=== PATIENT | female | born 1955 | race Caucasian/White ===

== ENCOUNTER 2017-06-14 14:40 | Emergency (ER) | payer OTHER ==
[~2017-06-14] VITALS: Ht 162.6 cm; Wt 60.3 kg
[~2017-06-14 14:40] MED LIST: ALDACTONE25 MG PO; ALDACTONE50 MG PO; ALLEGRA ALLERG180 MG PO; CALCIUM 600 +1 EAC1 PO; CINNAMON500 MG PO; CLEOCIN HCL300 MG PO; DIVIGEL0.25 MG PO; FISH OIL 1,001000 M2 PO; HYDROCHLOROTHIA25 M2 PO; INTERMEZZO1.75 MG SL; INVOKANA100 MG PO; JARDIANCE10 MG PO; LEXAPRO 10 MG T10 M1 PO; LEXAPRO20 MG PO; LIPITOR10 MG PO; METFORMIN HCL500 MG PO; PERCOCET 5-3251 EACH PO; TRETINOIN10 MG PO; TRIAMTERENE-HC1 EAC1 PO; TRULICITY1.5 MG/0.5; VITAMIN D2000 UNIT PO; VOLTAREN GEL 1100 G2 TOP; ZEGERID OTC 201 EACH PO; ZOLPIDEM TARTRA10 MG PO; [UNRECOGNIZED DRUG - REMARK] PO
[2017-06-14] MEDS ORDERED: AMOXICILLIN 50500 MG PO (14:52)
[2017-06-14] MEDS ORDERED: TESSALON PERLE100 MG PO ×2 (14:52→16:29)
[2017-06-14] MEDS ORDERED: TAMIFLU45 MG PO (14:52)
[2017-06-14 15:36] LABS: ABSOLUTE LYMPHOCYTES 2.1 thou/uL (0.8-5.3); ABSOLUTE MONOCYTES 0.4 thou/uL (0.0-1.2); ABSOLUTE NEUTROPHILS 2.5 thou/uL (1.6-8.1); BASOPHILS 0.5 %; EOSINOPHILS 0.7 %; HEMOGLOBIN 15.3 gm/dL (12.0-15.0); LYMPHOCYTES 41.9 %; MCH 29.3 pg (26.0-34.0); MCHC 33.3 g/dL (28.0-37.0); MONOCYTES 8.1 %; MPV 8.2 fl. (7.2-11.1); NUCLEATED RBCS 0 /100WBC; PLATELET COUNT* 306 thou/uL (150-400); POLYS 48.8 %; RBC 5.23 mil/uL (4.20-5.00); RDW-CV 13.4 % (10.5-14.5); WBC 5.1 thou/uL (4.0-11.0)
[2017-06-14 15:44] LABS: CALCIUM 10.2 mg/dL (8.5-10.1); CREATININE 0.7 mg/dL (0.6-1.3); POTASSIUM 3.3 mmol/L (3.5-5.1)
[2017-06-14 15:54] LABS: ALBUMIN 4.2 g/dL (3.4-5.0); TOTAL BILIRUBIN 0.7 mg/dL (<0.1-1.0); TOTAL PROTEIN 7.7 g/dL (6.4-8.2)
[2017-06-14] MEDS ORDERED: ACETAMINOPHEN-1 EAC1 PO (16:28)
[2017-06-14] MEDS ORDERED: PROMETHAZINE V473 ML PO (16:29)
[2017-06-14] MEDS ORDERED: PROAIR HFA8.5 GM INH (16:29)
[2017-06-14] MEDS ORDERED: MEDROLDOSEPACK PO (16:29)
[2017-06-14 16:49] VITALS: BP 128/58
== END 2017-06-14 16:50 | disposition home or self-care (01) ==
LOC: M.ERS 14:40
PROVIDERS: Physician Assistant
DX: J11.1 Influenza due to unidentified influenza virus with other respiratory manifestations (principal); E11.9 Type 2 diabetes mellitus without complications; E78.00 Pure hypercholesterolemia, unspecified; F32.9 Major depressive disorder, single episode, unspecified; K21.9 Gastro-esophageal reflux disease without esophagitis; Z98.890 Other specified postprocedural states

== ENCOUNTER → 2017-06-27 | Outpatient (CLI) | payer OTHER ==
[~2017-06-27] MED LIST changes: +ACETAMINOPHEN-1 EAC1 PO; +AMBIEN 5 MG TABL5 M1; +AMOXICILLIN 50500 MG PO; +CALCIUM 600 +1 EA16; +FISH OIL 1,001000 M2; +MEDROLDOSEPACK PO; +PROAIR HFA8.5 GM INH; +PROMETHAZINE V473 ML PO; +TAMIFLU45 MG PO; +TESSALON PERLE100 MG PO; +VITAMIN D1000 UNI1
[2017-06-27 12:36] LABS: CREATININE 0.9 mg/dL (0.6-1.3)
== END ==
LOC: M.LAB 12:15 → M.CT 14:00
PROVIDERS: Family Medicine
DX: I10 Essential (primary) hypertension (principal); E11.42 Type 2 diabetes mellitus with diabetic polyneuropathy; M47.894 Other spondylosis, thoracic region; K44.9 Diaphragmatic hernia without obstruction or gangrene; J84.10 Pulmonary fibrosis, unspecified; Z79.4 Long term (current) use of insulin

== ENCOUNTER → 2017-07-13 | Outpatient (CLI) | payer OTHER ==
--- NOTE | 2017-07-13 14:53 | CARDNUC ---
[place] [address] CARDIAC NUCLEAR IMAGING REPORT Name: JOSE PLASENCIA Room: [facility]#: [id number] Admission: 07/13/17 Attend Phys: Marylin Lindquist Discharge: Date of : 53 Date of Service: 07/13/17 1452 Report #: [id number] THIS REPORT FOR: //name// APPROVED REPORT Exam: Nuclear Stress Test Indication: dyspnea Patient Location: Out-Patient Stress Tech: Abigail Charly Stress Nurse: JOHN Bray Tech:GABY [place] Ht: 5 ft 3 in Wt: 128 lbs BSA: 1.60 m2 BMI: 22.67 Medical History Medical History: hyperlipidemia, diabetic Medications: triamterene/hctz, atorvastatin, aldactone Allergies: nkda Cardiac Risk Factors: age, hyperlipidemia, diabetes Previous Cardiac Procedures: none Exercise History: Physically active Stress Test Details Stress Test: Pharmacologic stress was paired with low level exercise. Reason for pharmacologic stress test: physical limitation. HR Resting HR: 73 bpm Max Heart Rate (APMHR): 158 bpm Max HR Achieved: 118 bpm Target HR (85% APMHR): 134 bpm % of APMHR: 74 Recovery HR: 93 bpm BP Resting BP: 135/76 mmHg Max BP: 167/76 mmHg ECG Resting ECG: sinus rhythm, diffuse subtle ST elevation Stress ECG: sinus rhythm, diffuse subtle ST elevation ST Change: None Arrhythmia: None Recovery ECG: sinus rhythm, diffuse subtle [place] [address] CARDIAC NUCLEAR IMAGING REPORT Name: JOSE PLASENCIA Room: [facility]#: [id number] Admission: 07/13/17 Attend Phys: Marylin Lindquist Discharge: Date of : 53 Date of Service: 07/13/17 1452 Report #: [id number] Change: None Recovery Arrhythmia: None Clinical Reason for Termination: Completed protocol Stress Symptoms: shortnes of breath Exercise duration: 0 min sec Exercise capacity: 1 METs Functional Aerobic Impairment 75% The patient had significant shortness of breath with walking Lexiscan stress. She did not have chest pain. Nurse Comments pt very soa during test. spoke with Dr. Campbell regarding intial EKG. OK to do test. Stress ECG Conclusion The baseline 12-lead electrocardiogram showed sinus rhythm with diffuse ST segment elevation. EKGs obtained during and post walking Lexiscan infusion showed sinus rhythm with no significant ST or T wave changes when compared to the baseline EKG. There were no stress-induced arrhythmias. NM EXAM: Myocardial Perfusion REST/STRESS Imaging Protocol: Rest Tc-99m/Stress Tc-99m 1 day Resting Data Rest SPECT myocardial perfusion imaging was performed in supine position 30 minutes following the intravenous injection of 10.7 mCi of Tc-99m Sestamibi. Time of rest injection: 0800 Time of rest imagin The images were gated to evaluate regional wall motion and calculate left ventricular ejection fraction. Administration Route: IV Pharmacologic Stress Pharmacologic stress test was performed by injecting Regadenoson 0.4 mg IV push followed by the intravenous injection of 35.5 mCi of Tc-99m Sestamibi. Time of stress injection: 0925 Time of stress imagin Administration Route: IV Gated Stress SPECT was performed 40 minutes after stress injection. The images were gated to evaluate regional [place] [address] CARDIAC NUCLEAR IMAGING REPORT Name: JOSE PLASENCIA Room: [facility]#: [id number] Admission: 07/13/17 Attend Phys: Marylin Lindquist Discharge: Date of : 53 Date of Service: 07/13/17 1452 Report #: [id number] left ventricular ejection fraction. Prone imaging was performed. Study Quality Study: Good Artifact: Mild Diaphragmatic artifact Study Data At rest, the left ventricular ejection fraction was 72%.. Post stress, the left ventricular ejection was 74%.. TID = 0.91. Perfusion Perfusion images obtained at rest show a moderate region of photopenia involving the inferior wall. Post Lexiscan stress images show more uniform uptake of the radioisotope especially in the prone position which shows uniform uptake of the radioisotope throughout the myocardium. There were no significant fixed or reversible defects to suggest infarct or ischemia. Wall Motion Normal left ventricular wall motion. Nuclear Conclusion ECG Findings: negative for ischemia Clinical Findings: equivocal Nuclear Findings: negative for ischemia Exercise Capacity: not assessed Left Ventricular Function: normal Risk Study: low Myocardial perfusion images show no defects to just infarct or ischemia. Left ventricular systolic function appears normal on gated studies. His is a low risk study. <Conclusion> The baseline 12-lead electrocardiogram showed sinus rhythm with diffuse ST segment elevation. EKGs obtained during and post walking Lexiscan infusion showed sinus rhythm with no significant ST or T wave changes when compared to the baseline EKG. There were no stress-induced arrhythmias. <ELECTRONICALLY SIGNED> By: Ming Campbell MD, FACC 07/13/17 1452 1452 1452 Ming Campbell MD, FACC /INF
== END ==
LOC: M.NUC 07-05 11:29
DX: E11.9 Type 2 diabetes mellitus without complications (principal); E78.5 Hyperlipidemia, unspecified; E78.00 Pure hypercholesterolemia, unspecified; R06.00 Dyspnea, unspecified; Z82.49 Family history of ischemic heart disease and other diseases of the circulatory system

== ENCOUNTER 2017-07-24 09:16 | Outpatient (CLI) | payer OTHER ==
[2017-07-24] VITALS (12 sets, daily range): BP systolic 115–137; BP diastolic 56–89
[~2017-07-24] VITALS: Ht 162.6 cm; Wt 57.2 kg
[~2017-07-24 09:16] MED LIST changes: -AMBIEN 5 MG TABL5 M1; -CALCIUM 600 +1 EA16; -FISH OIL 1,001000 M2; -VITAMIN D1000 UNI1
[2017-07-24 09:42] LABS: HEMATOCRIT 47.2 % (37.0-47.0); MCH 29.8 pg (26.0-34.0); MCHC 33.9 g/dL (28.0-37.0); MCV 87.9 fL (80.0-100.0); RBC 5.37 mil/uL (4.20-5.00); RDW-CV 13.9 % (10.5-14.5); WBC 7.6 thou/uL (4.0-11.0)
[2017-07-24 09:52] LABS: ANION GAP 14 mmol/L (7-16); BUN 16 mg/dL (7-18); CALCIUM 10.6 mg/dL (8.5-10.1); CHLORIDE 101 mmol/L (98-107); CO2 26 mmol/L (21-32); CREATININE 0.9 mg/dL (0.6-1.3); GLUCOSE 151 mg/dL (70-99); POTASSIUM 3.3 mmol/L (3.5-5.1); SODIUM 141 mmol/L (136-145)
[2017-07-24 09:53] LABS: APTT 25.2 Seconds (25.0-31.3); PROTIME 9.8 Seconds (9.20-11.50)
[2017-07-24 09:56] LABS: ALBUMIN 4.5 g/dL (3.4-5.0); ALKALINE PHOSPHATASE 95 U/L (46-116); CHOLESTEROL 215 mg/dL (<200); HDL CHOLESTEROL 56 mg/dL (>40); LDL CHOLESTEROL 117 mg/dL (<100); SGOT 14 U/L (15-37); SGPT 18 U/L (30-65); TC:HDL 3.8 Ratio (Not establshd); TOTAL PROTEIN 7.9 g/dL (6.4-8.2); TRIGLYCERIDE 211 mg/dL (<150); VLDL 42 mg/dL (<40)
[2017-07-24 09:57] LABS: SERUM ASSESSMENT Clear
[2017-07-24] MEDS ORDERED: AMBIEN 5 MG TABL5 M1 (10:12)
[2017-07-24] MEDS ORDERED: FISH OIL 1,001000 M2 (10:13)
[2017-07-24] MEDS ORDERED: VITAMIN D1000 UNI1 (10:14)
[2017-07-24] MEDS ORDERED: CALCIUM 600 +1 EA16 (10:16)
--- NOTE | 2017-07-24 15:17 | CARD ---
[address] [address] CARDIAC CATH REPORT Name: JOSE PLASENCIA [id number] Admission: 07/24/17 Attend Phys: Justen Hill MD, Discharge: Date of : 53 Report #: [id number] THIS REPORT FOR: //name// APPROVED REPORT Patient Details Patient Status: Out-Patient Room #: Event Personnel Dr. Hill Procedures Performed Left heart catheterization left ventriculography and selective coronary angiography Indication Dyspnea, Chest pain Risk Factors Family History, Hypercholesterolemia Procedure Narrative The patient was brought electively to the Cardiac Catheterization Laboratory and was prepped and draped in a sterile manner. The right femoral was infiltrated with 1% Lidocaine subcutaneous anesthesia. A 6 Persian sheath was inserted into the right femoral artery. Coronary angiography was performed using coronary diagnostic catheters. The right coronary system was accessed and visualized with a Diagnostic catheter. The left coronary system was accessed and visualized with a Diagnostic catheter. The left ventricle was accessed and visualized with a Diagnostic catheter. Left ventricular/Aortic Valve gradient assessed via catheter pullback. Left ventriculogram was performed in ANAYA projection. Pre-demployment femoral angiogram was performed . Closure device was deployed with a 6 Fr Mynx. There was no hematoma. Coronary Angiography The patient's coronary anatomy is co- dominant. Diagnostic Cath Left Main 0% narrowing LAD 0% narrowing of this tortuous vessel Circumflex Codominant vessel with 0% narrowing Right Coronary Codominant vessel with 0% [place] [address] CARDIAC CATH REPORT Name: JOSE PLASENCIA Room: [address] Marylin.Tianna.#: [id number] Admission: 07/24/17 Attend Phys: Justen Hill MD, Discharge: Date of : 53 Report #: [id number] Left Ventriculography The left ventricle is normal in size with normal contractility. The left ventricular ejection fraction is estimated to be 65%. Left ventricular wall motion abnormalities are not present. There is no mitral insufficiency. Hemodynamics The aortic pressure is 130/70 mmHg with a mean of 82 mmHg. The left ventricular pressure is 130/3 end diastolic mmHg with a mean of mmHg. The left ventricular end diastolic pressure is 3 mmHg. There was no gradient across the aortic valve upon pullback. Conclusion #1 normal coronary arteries, #2 normal left ventricular systolic function, estimated ejection fraction 65%, #3 normal left-sided hemodynamics study. <ELECTRONICALLY SIGNED> By: Justen Hill MD, [facility] 07/24/17 1516 1516 1516Justen Hill MD, FACC /INF
--- NOTE | 2017-07-24 16:02 | EKG ---
[place] [address] ELECTROCARDIOGRAM REPORT Name: JOSE PLASENCIA Room: [address]#: [id number] Admission: 07/24/17 Attend Phys: Justen Hill MD, Discharge: Date of : 53 Report #: [id number] THIS REPORT FOR: //name// [facility] Test Date: 2017-07-24 Test Time: 10:22:52 Pat Name: JOSE PLASENCIA Department: Room: Gender: F Information Systems Security Specialist: [facility] : 1955 Requested By: Justen Hill Order Number: [id number] Chanelle MD: Justen Hill Measurements Intervals [place] Rate: 76 P: 2 MN: 156 QRS: 43 QRSD: 101 T: 72 QT: 396 QTc: 446 Interpretive Statements Sinus rhythm Borderline T abnormalities, anterior leads Compared to ECG 10/02/2015 15:20:56 No significant changes Electronically Signed On 07-24-2017 16:01:52 SETTER OUT by Justen Hill [email or web address] <ELECTRONICALLY SIGNED> By: Justen Hill MD, [facility] 07/24/17 1601 21 102 Justen Hill MD, FACC /EPI
--- NOTE | 2017-07-25 16:04 | NUR ---
Spoke with patient by phone, states her right groin is healing well, drsg is dry. She is up and walking without difficulty. Has not had any chest pain, no concerns at this time.
== END 2017-07-24 15:16 | disposition home or self-care (01) ==
LOC: M.CL 09:16 → M.TBA-CV 11:15 → M.CL 15:16
PROVIDERS: Internal Medicine
DX: R94.39 Abnormal result of other cardiovascular function study (principal); R07.9 Chest pain, unspecified; R06.00 Dyspnea, unspecified; E11.9 Type 2 diabetes mellitus without complications; E78.00 Pure hypercholesterolemia, unspecified; G47.33 Obstructive sleep apnea (adult) (pediatric); K21.9 Gastro-esophageal reflux disease without esophagitis; F32.89 Other specified depressive episodes; Z79.899 Other long term (current) drug therapy; Z98.890 Other specified postprocedural states; Z88.8 Allergy status to other drugs, medicaments and biological substances

== ENCOUNTER → 2017-08-01 | Outpatient (CLI) | payer OTHER ==
[~2017-08-01] MED LIST changes: +AMBIEN 5 MG TABL5 M1; +CALCIUM 600 +1 EA16; +FISH OIL 1,001000 M2; +VITAMIN D1000 UNI1
--- NOTE | 2017-08-28 09:25 | PF ---
[address] [address] PULMONARY FUNCTION REPORT Name: JOSE PLASENCIA Room: [facility]#: [id number] Admission: 08/01/17 Attend Phys: Radha Trejo Discharge: Date of : 53 Report #: [id number] THIS REPORT FOR: //name// CC: Chiqui Barkley REFERRING PHYSICIAN: Dr. Barkley. TYPE OF STUDY: Pulmonary function test. SPIROMETRY: The FEV1/FVC ratio was 66% predicted. The FEV1 post-bronchodilator was 2.46 at 103% predicted. The forced vital capacity was 3.34 liters at 108% predicted. No significant post-bronchodilator response recorded. Total lung capacity 106% predicted at 5.04 liters. DLCO was 126% predicted. IMPRESSION: The above pulmonary function test demonstrates mild obstructive pulmonary defect without significant bronchodilator response. <ELECTRONICALLY SIGNED> By: Foreign Arango MD 08/28/17 0925 1206 [id number] Arango MD /nt
== END ==
LOC: M.PUL 10:00
DX: R06.02 Shortness of breath (principal)

== ENCOUNTER → 2018-02-23 | Outpatient (CLI) | payer OTHER ==
[2018-02-23 15:08] LABS: ABSOLUTE BASOPHILS 0.1 thou/uL (0.0-0.2); ABSOLUTE EOSINOPHILS 0.1 thou/uL (0.0-0.7); ABSOLUTE MONOCYTES 0.4 thou/uL (0.0-1.2); ABSOLUTE NEUTROPHILS 4.7 thou/uL (1.6-8.1); EOSINOPHILS 0.9 %; HEMATOCRIT 41.1 % (37.0-47.0); HEMOGLOBIN 13.4 gm/dL (12.0-15.0); LYMPHOCYTES 27.2 %; MCH 27.6 pg (26.0-34.0); MCHC 32.7 g/dL (28.0-37.0); MCV 84.6 fL (80.0-100.0); MONOCYTES 5.9 %; MPV 8.2 fl. (7.2-11.1); NUCLEATED RBCS 0 /100WBC; PLATELET COUNT* 360 thou/uL (150-400); RBC 4.86 mil/uL (4.20-5.00); RDW-CV 14.6 % (10.5-14.5); WBC 7.2 thou/uL (4.0-11.0)
[2018-02-26 23:06] LABS: MYCOPLASMA PNEUMONIA IgG 155 U/mL (0-99); MYCOPLASMA PNEUMONIA IgM <770 U/mL (0-769)
== END ==
LOC: M.LAB 14:45
PROVIDERS: Registered Nurse
DX: R05 Cough (principal); R06.02 Shortness of breath; E11.9 Type 2 diabetes mellitus without complications; E78.00 Pure hypercholesterolemia, unspecified; K21.9 Gastro-esophageal reflux disease without esophagitis

== ENCOUNTER → 2018-03-07 | Outpatient (CLI) | payer OTHER | LOC: M.RAD 02-27 12:11 | DX: Z12.31 Encounter for screening mammogram for malignant neoplasm of breast (principal); Z78.0 Asymptomatic menopausal state; N91.2 Amenorrhea, unspecified; E11.9 Type 2 diabetes mellitus without complications; E78.00 Pure hypercholesterolemia, unspecified; G47.33 Obstructive sleep apnea (adult) (pediatric); F32.9 Major depressive disorder, single episode, unspecified ==

== ENCOUNTER → 2018-03-16 | Outpatient (CLI) | payer OTHER ==
[2018-03-16 11:49] LABS: ALBUMIN 4.2 g/dL (3.4-5.0); ALKALINE PHOSPHATASE 87 U/L (46-116); ANION GAP 8 mmol/L (7-16); BUN 15 mg/dL (7-18); CALCIUM 10.5 mg/dL (8.5-10.1); CHLORIDE 101 mmol/L (98-107); CHOLESTEROL 187 mg/dL (<200); CO2 30 mmol/L (21-32); CREATININE 0.7 mg/dL (0.6-1.3); GLUCOSE 122 mg/dL (70-99); HDL CHOLESTEROL 78 mg/dL (>40); LDL CHOLESTEROL 91 mg/dL (<100); POTASSIUM 3.5 mmol/L (3.5-5.1); SGOT 12 U/L (15-37); SGPT 18 U/L (30-65); SODIUM 139 mmol/L (136-145); TC:HDL 2.4 Ratio (Not establshd); TOTAL BILIRUBIN 0.8 mg/dL (<0.1-1.0); TOTAL PROTEIN 7.6 g/dL (6.4-8.2); TRIGLYCERIDE 94 mg/dL (<150); VLDL 19 mg/dL (<40)
[2018-03-16 11:50] LABS: SERUM ASSESSMENT Clear
[2018-03-16 23:07] LABS: GLYCOHEMOGLOBIN (HGB A1C) 7.1 % (4.8-5.6)
[2018-03-20 02:07] LABS: MYCOPLASMA PNEUMONIA IgG 148 U/mL (0-99); MYCOPLASMA PNEUMONIA IgM <770 U/mL (0-769)
== END ==
LOC: M.LAB 11:01
PROVIDERS: Family Medicine
DX: M81.0 Age-related osteoporosis without current pathological fracture (principal); R05 Cough; E78.00 Pure hypercholesterolemia, unspecified; E11.9 Type 2 diabetes mellitus without complications; I10 Essential (primary) hypertension; E32.9 Disease of thymus, unspecified